=== PATIENT | female | born 1985 | race Caucasian/White ===

== ENCOUNTER 2018-10-06 08:14 | Emergency (ER) | payer BC, OTHER ==
[2018-10-06 08:35] VITALS: BP 107/67
--- NOTE | 2018-10-06 09:06 | UC ---
General HPI - HPI Summary HPI Summary: Patient with sinus pressure congestion for the past 7 days. Worried she is going out of town for a week this weekend. No fevers. Sinus headache, congestion, bright green mucus. Mild cough that started a few days ago. No N/V /D. No rash. Is taking her allergy medicaiton and nasal spray. Also taking decongestant. All which have helped somewhat. MEd: Reviewed - History of Current Complaint Chief Complaint: UCRespiratory Stated Complaint: SINUS Time Seen by Provider: 10/06/18 08:49 Pain Intensity: 4 - Allergy/Home Medications Allergies/Adverse Reactions: Allergies Allergy/AdvReac Type Severity Reaction Status Date / Time Sulfa (Sulfonamide Allergy Rash Verified 10/06/18 08:35 Antibiotics) Home Medications: Home Medications Ethinyl Estradiol/Drospirenone [Shamika 28 3-0.03 mg] 1 tab PO 10/06/18 [History] Fexofenadine (NF) [Evonne 180 (NF)] 180 mg PO 10/06/18 [History] Fluticasone NASAL SPRAY 50MCG* [Flonase NASAL SPRAY 50MCG*] 2 spray BOTH NARES DAILY 10/06/18 [History Confirmed 10/06/18] PMH/Surg Hx/FS Hx/Imm Hx Previously Healthy: Yes - Surgical History Surgical History: None - Social History Alcohol Use: Occasionally Substance Use Type: None Smoking Status (MU): Never Smoked Tobacco Review of Systems All Other Systems Reviewed And Are Negative: Yes Constitutional: Positive: Negative ENT: Positive: Nasal Discharge, Sinus Congestion, Sinus Pain/Tenderness Respiratory: Positive: Cough Physical Exam Triage Information Reviewed: Yes Appearance: Well-Appearing Vital Signs: Initial Vital Signs Temp 98.2 F 10/06/18 08:30 Pulse 85 10/06/18 08:30 Resp 18 10/06/18 08:30 BP 107/67 10/06/18 08:30 Pulse Ox 100 10/06/18 08:30 Vital Signs Reviewed: Yes ENT: Positive: Pharyngeal erythema, Nasal congestion, Other - sinus tendnerness over forehead and maxillary sinus' Neck: Positive: Supple, Nontender Respiratory: Positive: Lungs clear, Normal breath sounds Cardiovascular: Positive: RRR, No Murmur Skin Exam: Normal Course/Dx - Course Course Of Treatment: This is a 33 yr old with sinus pressure/pain Asssessment Sinusitis Plan REcommend waiting a few days to see if symptoms start to improve and continue current regimen that you are doing If symptoms persist or worsen despite doing above regimen then start Augment as prescribed If symptoms persist or worsen despite taking antibiotic, follow up with PCP or return to urgent care - Diagnoses Provider Diagnosis: Sinusitis Discharge - Sign-Out/Discharge Documenting (check all that apply): Patient Departure All imaging exams completed and their final reports reviewed: No Studies - Discharge Plan Condition: Good Disposition: HOME Prescriptions: Amoxicillin/Clavulanate TAB* [Augmentin TAB 875*] 875 mg PO BID #14 tab Patient Education Materials: Sinusitis (ED) Forms: *Work Release Referrals: Matthieu JACKSON,Opal López [Primary Care Provider] - Additional Instructions: REcommend waiting a few days to see if symptoms start to improve and continue current regimen that you are doing If symptoms persist or worsen despite doing above regimen then start Augment as prescribed If symptoms persist or worsen despite taking antibiotic, follow up with PCP or return to urgent care - Billing Disposition and Condition Condition: GOOD Disposition: Home
== END 2018-10-06 09:15 | disposition home or self-care (01) ==
LOC: UCEAST 08:14
DX: J32.9 Chronic sinusitis, unspecified (principal); Z88.2 Allergy status to sulfonamides
CPT/HCPCS: 99212; G0463